=== PATIENT | female | born 1995 | race Caucasian/White ===

== ENCOUNTER 2016-04-16 07:44 | Emergency (ER) | payer BC ==
--- NOTE | 2016-04-16 08:33 | UC ---
FLU HPI - HPI Summary HPI Summary: Pt presents with c/o generalized body aches, cough, nasal congestion, sore throat , coughing up "bloody phlegm" X 3 days. - History of Current Complaint Chief Complaint: UCRespiratory Stated Complaint: ST/FEVER/HEADACHE Time Seen by Provider: 04/16/16 08:12 Hx Obtained From: Patient Hx Last Menstrual Period: 2.5 weeks ?: No Onset/Duration: Sudden Onset, Lasting Days Severity Currently: Mild Severity Initially: Mild Associated Signs & Symptoms: Positive: Fever, Myalgia, Cough, Sore Throat, Nasal Congestion, Headache - Risk Factors Influenza Risk Factors: Negative - Allergy/Home Medications Allergies/Adverse Reactions: Allergies Allergy/AdvReac Type Severity Reaction Status Date / Time gluten Allergy Abdominal Uncoded 04/16/16 07:49 Pain Home Medications: Home Medications Drospirenone-Ethinyl Estradiol [Vestura] 1 tab PO DAILY 04/16/16 [History Confirmed 04/16/16] Otc Cough Med 1 dose PO ONCE PRN 04/16/16 [History] [id number] [Nyquil Severe Cold/Flu 5-6.25-10-325 mg/15Ml] 1 liq PO BEDTIME PRN 04/16/16 [History Confirmed 04/16/16] PMH/Surg Hx/FS Hx/Imm Hx Previously Healthy: Yes - Surgical History Surgical History: Yes Surgery Procedure, Year, and Place: wisdom teeth - Family History Known Family History: Positive: Other - positive [facility] for viral disease - Social History Occupation: Student Alcohol Use: Occasionally Substance Use Type: None Smoking Status (MU): Never Smoked Tobacco Review of Systems Constitutional: Fever, Chills, Fatigue Skin: Negative Eyes: Negative ENT: Sore Throat Respiratory: Cough Cardiovascular: Negative Gastrointestinal: Negative Genitourinary: Negative Motor: Negative Neurovascular: Negative Musculoskeletal: Myalgia Neurological: Headache Psychological: Negative All Other Systems Reviewed And Are Negative: Yes Physical Exam Triage Information Reviewed: Yes Appearance: Ill-Appearing Vital Signs: Initial Vital Signs Temp 98.7 F 04/16/16 07:52 Pulse 97 04/16/16 07:52 Resp 18 04/16/16 07:52 BP 119/70 04/16/16 07:52 Pulse Ox 100 04/16/16 07:52 Vital Signs Reviewed: Yes Eye Exam: Normal ENT Exam: Other ENT: Positive: Tonsillar swelling Dental Exam: Normal Neck exam: Normal Respiratory Exam: Normal Cardiovascular Exam: Normal Musculoskeletal Exam: Normal Neurological Exam: Normal Psychological Exam: Normal Skin Exam: Normal Flu Course/Dx - Differential Dx/Diagnosis Differential Diagnosis/HQI/PQRI: Bronchitis, Influenza, Upper Respiratory Infection, Other - mono, Provider Diagnoses: Viral syndrome Discharge - Discharge Plan Condition: Stable Disposition: HOME Patient Education Materials: Viral Syndrome (ED) Forms: *School Release Referrals: [facility] [place] [facility] [Outside]
[2016-04-16 09:16] VITALS: BP 119/70
== END 2016-04-16 09:20 | disposition home or self-care (01) ==
LOC: UCCORT 07:44
DX: B34.9 Viral infection, unspecified (principal); R50.9 Fever, unspecified; R09.81 Nasal congestion; R53.83 Other fatigue; Z91.02 Food additives allergy status
CPT/HCPCS: 87502; 87651; 99201; G0463

== ENCOUNTER 2016-06-13 16:59 | Emergency (ER) | payer BC ==
[2016-06-13 18:11] VITALS: BP 110/55
--- NOTE | 2016-06-13 18:17 | UC ---
Throat Pain/Nasal Herrera HPI - HPI Summary HPI Summary: complaint of sore throat that started yetsrday this morning when she woke up she could hardly swallow has felt feverish but hasn't checked her temp slight nasal congestion denies cough denies headache and ear pain took skin infection but only took 2 doses has been taking tylenol without much relief - History of Current Complaint Chief Complaint: UCGeneralIllness Stated Complaint: SWOLLEN THROAT/ST/REDNESS Time Seen by Provider: 06/13/16 18:11 Hx Obtained From: Patient Hx Last Menstrual Period: 3 wks ago - Allergies/Home Medications Allergies/Adverse Reactions: Allergies Allergy/AdvReac Type Severity Reaction Status Date / Time gluten Allergy Abdominal Uncoded 06/13/16 18:04 Pain Home Medications: Home Medications ALPRAZolam TAB* [Xanax TAB*] 0.25 mg PO DAILY PRN 06/13/16 [History Confirmed ] Azithromycin TAB* [Zithromax TAB (Z-JO ANN) 250 mg #6 tabs] 250 mg PO DAILY [History Confirmed 06/13/16] Lisdexamfetamine Dimesylate [Vyvanse] 20 mg PO DAILY 06/13/16 [History Confirmed 06/13/16] PMH/Surg Hx/FS Hx/Imm Hx Previously Healthy: Yes - Surgical History Surgical History: Yes Surgery Procedure, Year, and Place: wisdom teeth - Family History Known Family History: Positive: Other - positive [facility] for viral disease Negative: Cardiac Disease, Hypertension, Diabetes - Social History Occupation: Student Alcohol Use: Occasionally Substance Use Type: None Smoking Status (MU): Never Smoked Tobacco Review of Systems Constitutional: Negative Skin: Negative Eyes: Negative ENT: Sore Throat, Nasal Discharge Respiratory: Negative Cardiovascular: Negative Gastrointestinal: Negative Genitourinary: Negative Motor: Negative Neurovascular: Negative Musculoskeletal: Negative Neurological: Negative Psychological: Negative All Other Systems Reviewed And Are Negative: Yes Physical Exam Triage Information Reviewed: Yes Appearance: No Pain Distress, Well-Nourished Vital Signs: Initial Vital Signs Temp 98.7 F 06/13/16 18:06 Pulse 78 06/13/16 18:06 Resp 16 06/13/16 18:06 BP 110/55 06/13/16 18:06 Pulse Ox 100 06/13/16 18:06 Vital Signs Reviewed: Yes Eyes: Positive: Conjunctiva Clear ENT: Positive: Pharyngeal erythema, Nasal congestion, Nasal drainage, TMs normal , Tonsillar swelling, Tonsillar exudate Dental: Positive: Cervical Lymphadenopathy Respiratory: Positive: Lungs clear, Normal breath sounds, No respiratory distress, No accessory muscle use Cardiovascular: Positive: RRR, No Murmur, Pulses Normal Abdomen Description: Positive: Nontender, Soft Bowel Sounds: Positive: Present Musculoskeletal Exam: Normal Neurological Exam: Normal Psychological Exam: Normal Skin Exam: Normal Throat Pain/Nasal Course/Dx - Differential Dx/Diagnosis Differential Diagnosis/HQI/PQRI: Pharyngitis, Tonsillitis Provider Diagnoses: tonsilitis-strep Discharge - Discharge Plan Condition: Stable Disposition: HOME Prescriptions: Penicillin VK TAB 500 MG(NF) [Penicillin VK 500 mg Tab(NF)] 500 mg PO TID #30 tab Patient Education Materials: Strep Throat (ED) Referrals: Non Staff,Doctor [Primary Care Provider] - Additional Instructions: Please take antibiotic as directed Increase fluids and rest Take acetaminophen or ibuprofen for fever or pain Please review your discharge instructions. If your symptoms do not improve please call your primary care provider or return to urgent care.
== END 2016-06-13 18:53 | disposition home or self-care (01) ==
LOC: UCCORT 16:59
DX: J03.00 Acute streptococcal tonsillitis, unspecified (principal)
CPT/HCPCS: 87651; 99212; G0463

== ENCOUNTER 2016-11-16 16:23 | Emergency (ER) | payer BC ==
[2016-11-16 16:49] VITALS: BP 118/56
--- NOTE | 2016-11-16 18:25 | UC ---
Eye Complaint HPI - HPI Summary HPI Summary: Pt c/o left eye redness and green drainage, X 1 day. - History of Current Complaint Chief Complaint: UCEye Stated Complaint: LEFT EYE COMPLAINT Time Seen by Provider: 11/16/16 17:18 Hx Obtained From: Patient Hx Last Menstrual Period: 11/02/16 ?: No Onset/Duration: Sudden Onset Timing: Constant Severity Initially: Mild Severity Currently: Mild Pain Intensity: 0 Pain Scale Used: 0-10 Numeric Location of Injury: Conjunctiva Aggravating Factor(s): Light Alleviating Factor(s): Darkness Associated Signs And Symptoms: Positive: Drainage (Purulent) - Risk Factors Acute Glaucoma Risk Factors: Negative Optic Artery Occlusion Risk Factors: Negative - Allergies/Home Medications Allergies/Adverse Reactions: Allergies Allergy/AdvReac Type Severity Reaction Status Date / Time gluten Allergy Abdominal Uncoded 11/16/16 16:44 Pain PMH/Surg Hx/FS Hx/Imm Hx Previously Healthy: Yes - Surgical History Surgical History: Yes Surgery Procedure, Year, and Place: wisdom teeth - Family History Known Family History: Positive: Other - positive [facility] for viral disease Negative: Cardiac Disease, Hypertension, Diabetes - Social History Occupation: Student [employer] oscar buna Lives: With Family Alcohol Use: Weekly Substance Use Type: None Smoking Status (MU): Never Smoked Tobacco Have You Smoked in the Last Year: No Review of Systems Constitutional: Negative Skin: Negative Eyes: Drainage - green, Eye Redness ENT: Negative Respiratory: Negative Cardiovascular: Negative Gastrointestinal: Negative Genitourinary: Negative Motor: Negative Neurovascular: Negative Musculoskeletal: Negative Neurological: Negative Psychological: Negative Is Patient Immunocompromised?: No All Other Systems Reviewed And Are Negative: Yes Physical Exam Triage Information Reviewed: Yes Appearance: Well-Appearing Vital Signs: Initial Vital Signs Temp 98.3 F 11/16/16 16:45 Pulse 92 11/16/16 16:45 Resp 18 11/16/16 16:45 BP 118/56 11/16/16 16:45 Pulse Ox 100 11/16/16 16:45 Vital Signs Reviewed: Yes Eyes: Positive: Conjunctiva Inflamed, Discharge - yellow ENT Exam: Normal Dental Exam: Normal Neck exam: Normal Respiratory Exam: Normal Cardiovascular Exam: Normal Musculoskeletal Exam: Normal Neurological Exam: Normal Psychological Exam: Normal Skin Exam: Normal Eye Complaint Course/Dx - Differential Dx/Diagnosis Differential Diagnosis/HQI/PQRI: Conjunctivitis Provider Diagnoses: conjunctivitis left eye Discharge - Discharge Plan Condition: Stable Disposition: HOME Prescriptions: Polymyx/Trimethoprim OPTH* [Polytrim OPHTH*] 2 drop BOTH EYES Q8H #1 btl Patient Education Materials: Conjunctivitis (ED) Referrals: [facility] [place] [facility] [Outside] Non Staff,Doctor [Primary Care Provider] - If Needed
== END 2016-11-16 17:29 | disposition home or self-care (01) ==
LOC: UCCORT 16:23
DX: H10.9 Unspecified conjunctivitis (principal)
CPT/HCPCS: 99212; G0463

== ENCOUNTER 2017-01-01 12:44 | Emergency (ER) | payer BC | END 2017-01-01 15:38 | disposition left against medical advice (07) | LOC: UCCORT 12:44 | DX: L98.9 Disorder of the skin and subcutaneous tissue, unspecified (principal); Z53.21 Procedure and treatment not carried out due to patient leaving prior to being seen by health care provider ==

== ENCOUNTER 2017-04-03 10:12 | Emergency (ER) | payer BC ==
[2017-04-03 12:13] VITALS: BP 133/62
--- NOTE | 2017-04-03 13:01 | RAD ---
HISTORY: Upper back pain COMPARISONS: None VIEWS: 2, Frontal and lateral views of the thoracic spine. FINDINGS: ALIGNMENT: The alignment is normal. VERTEBRAL BODIES: The vertebral body heights are normal. The interpedicular distances are normal. JOINTS: Unremarkable. INTERVERTEBRAL DISCS: The intervertebral disc heights are normal. SOFT TISSUE: Unremarkable OTHER: The visualized lungs are clear. IMPRESSION: UNREMARKABLE RADIOGRAPHS OF THE THORACIC SPINE
--- NOTE | 2017-04-03 13:01 | RAD ---
HISTORY: Back pain COMPARISONS: None VIEWS: 4: Frontal dual-energy and lateral views of the chest. FINDINGS: CARDIOMEDIASTINAL SILHOUETTE: The cardiomediastinal silhouette is normal. BECCA: The becca are normal. PLEURA: The costophrenic angles are sharp. No pleural abnormalities are noted. LUNG PARENCHYMA: The lungs are clear. ABDOMEN: The upper abdomen is clear. There is no subphrenic gas. BONES AND SOFT TISSUES: No bone or soft tissue abnormalities are noted. OTHER: None. IMPRESSION: NO ACTIVE CARDIOPULMONARY DISEASE.
--- NOTE | 2017-04-03 13:14 | UC ---
Back Pain HPI - HPI Summary HPI Summary: 21 y/o female with 2 week h/o back pain, denies neck pain, fever, chills, body aches, trauma. no insinuating event, no prior occurance. Patient states tried fathers muscle relaxer which made her fall asleep, no problems with sleeping at night, no cough. patient is concerned as aunt had lung cancer and presented with similar symptoms, anxious. denies neurological symptoms, weakness - History of Current Complaint Chief Complaint: UCUpperExtremity Stated Complaint: NECK PAIN/TENSION Time Seen by Provider: 04/03/17 12:28 Hx Obtained From: Patient Hx Last Menstrual Period: 04/02/17 Onset/Duration: Sudden Onset, Lasting Weeks Timing: Constant Severity Initially: Moderate Severity Currently: Moderate Pain Intensity: 4 Pain Scale Used: 0-10 Numeric - Allergies/Home Medications Allergies/Adverse Reactions: Allergies Allergy/AdvReac Type Severity Reaction Status Date / Time gluten Allergy Abdominal Uncoded 04/03/17 12:05 Pain Home Medications: Home Medications ALPRAZolam [Alprazolam] 1 mg PO DAILY 04/03/17 [History Confirmed 04/03/17] Lisdexamfetamine Dimesylate [Vyvanse] 1 mg PO 04/03/17 [History] PMH/Surg Hx/FS Hx/Imm Hx Previously Healthy: Yes - Surgical History Surgical History: Yes Surgery Procedure, Year, and Place: wisdom teeth - Family History Known Family History: Positive: Other - positive [facility] for viral disease Negative: Cardiac Disease, Hypertension, Diabetes - Social History Alcohol Use: Weekly Substance Use Type: None Smoking Status (MU): Never Smoked Tobacco Have You Smoked in the Last Year: No Review of Systems Musculoskeletal: Decreased ROM, Myalgia Psychological: Anxious Is Patient Immunocompromised?: No All Other Systems Reviewed And Are Negative: Yes Physical Exam Triage Information Reviewed: Yes Appearance: Well-Appearing, No Pain Distress, Well-Nourished Vital Signs: Initial Vital Signs Temp 98.7 F 04/03/17 12:07 Pulse 94 04/03/17 12:07 Resp 18 04/03/17 12:07 BP 133/62 04/03/17 12:07 Pulse Ox 99 04/03/17 12:07 Vital Signs Reviewed: Yes Eyes: Positive: Conjunctiva Clear Neck: Positive: Supple, Nontender, No Lymphadenopathy Respiratory: Positive: Chest non-tender, Lungs clear, Normal breath sounds, No respiratory distress, No accessory muscle use Musculoskeletal: Positive: Strength Intact, ROM Intact, Other: - tenderness over paraspinal muscle thoracic region, full ROM of shoudler b/l, uses both arms equally without difficulty, no tenderness over spinal cervical, thoracic, lumbar. + trap tendreness b/l. Neurological Exam: Normal Psychological Exam: Normal Skin Exam: Normal Back Pain Course/Dx - Course Course Of Treatment: radiograph negative, likely muscle spasm, lidoderm patch, given, motrin/ naproxen x 4 days, follow up with pcp if no improvement - Differential Dx/Diagnosis Provider Diagnoses: muscle spasm, upper back Discharge - Discharge Plan Condition: Good Disposition: HOME Prescriptions: Lidocaine PATCH 5%* [Lidoderm 5% Patch*] 1 patch TRANSDERM DAILY PRN #10 patch PRN Reason: muscle pain Patient Education Materials: Muscle Spasm (ED), Back Pain (ED) Referrals: Non Staff,Doctor [Primary Care Provider] - Additional Instructions: - Increase stretching - lidoderm patch 12 hours on, 12 hours off for pain - Motrin 400mg every 6 hours or naproxen twice daily x 4 days to decrease swelling - Increase fluid intake
== END 2017-04-03 13:12 | disposition home or self-care (01) ==
LOC: UCCORT 10:12
DX: M62.830 Muscle spasm of back (principal)
CPT/HCPCS: 71046; 72070; 99212; G0463

== ENCOUNTER 2018-05-03 09:57 | Emergency (ER) | payer BC ==
[2018-05-03 10:23] VITALS: BP 119/82
--- NOTE | 2018-05-03 10:31 | UC ---
Throat Pain/Nasal Herrera HPI - HPI Summary HPI Summary: nasal congestion , cough x 1 days bilateral ear pain, sore throat no fever, + chills - History of Current Complaint Chief Complaint: UCGeneralIllness Stated Complaint: UPPER RESPIRATORY CONCERNS Time Seen by Provider: 05/03/18 10:20 Hx Obtained From: Patient Hx Last Menstrual Period: 04/19/18 ?: No Onset/Duration: Gradual Onset, Lasting Days - 1, Still Present Severity: Moderate Pain Intensity: 0 Cough: Nonproductive Associated Signs & Symptoms: Positive: Nasal Discharge. Negative: Wheezing, Hoarseness, Sinus Discomfort, Fever - Allergies/Home Medications Allergies/Adverse Reactions: Allergies Allergy/AdvReac Type Severity Reaction Status Date / Time gluten Allergy Abdominal Uncoded 05/03/18 10:21 Pain PMH/Surg Hx/FS Hx/Imm Hx Previously Healthy: Yes - Surgical History Surgical History: Yes Surgery Procedure, Year, and Place: wisdom teeth - Family History Known Family History: Positive: Other - positive [facility] for viral disease Negative: Cardiac Disease, Hypertension, Diabetes - Social History Alcohol Use: Weekly Substance Use Type: None Smoking Status (MU): Never Smoked Tobacco Have You Smoked in the Last Year: No Review of Systems All Other Systems Reviewed And Are Negative: Yes Constitutional: Positive: Chills, Fatigue Skin: Positive: Negative Eyes: Positive: Negative ENT: Positive: Sore Throat, Ear Ache, Nasal Discharge, Sinus Congestion, Sinus Pain/Tenderness Respiratory: Positive: Cough Cardiovascular: Positive: Negative Is Patient Immunocompromised?: No Physical Exam Triage Information Reviewed: Yes Appearance: Well-Appearing, No Pain Distress, Well-Nourished Vital Signs: Initial Vital Signs Temp 98.5 F 05/03/18 10:20 Pulse 86 05/03/18 10:20 Resp 15 05/03/18 10:20 BP 119/82 05/03/18 10:20 Pulse Ox 100 05/03/18 10:20 Vital Signs Reviewed: Yes Eye Exam: Normal ENT: Positive: Normal ENT inspection, Hearing grossly normal, Pharynx normal, Nasal congestion, TMs normal. Negative: TM bulging, TM dull, TM red Neck: Positive: Supple, Nontender, No Lymphadenopathy Respiratory: Positive: Chest non-tender, Lungs clear, Normal breath sounds Cardiovascular: Positive: RRR, No Murmur, Pulses Normal Skin Exam: Normal Throat Pain/Nasal Course/Dx - Differential Dx/Diagnosis Provider Diagnosis: URI, acute Discharge - Sign-Out/Discharge Documenting (check all that apply): Patient Departure All imaging exams completed and their final reports reviewed: No Studies - Discharge Plan Condition: Stable Disposition: HOME Patient Education Materials: Upper Respiratory Infection (DC) Referrals: Non Staff,Doctor [Primary Care Provider] - If Needed - Billing Disposition and Condition Condition: STABLE Disposition: Home
== END 2018-05-03 10:33 | disposition home or self-care (01) ==
LOC: UCCORT 09:57
DX: J06.9 Acute upper respiratory infection, unspecified (principal); H92.03 Otalgia, bilateral; Z91.018 Allergy to other foods
CPT/HCPCS: 99211; G0463